=== PATIENT | female | born 1990 | race Caucasian/White ===

== ENCOUNTER 2018-02-09 08:35 | Emergency (ER) | payer SELFPAY ==
[~2018-02-09] VITALS: Ht 160 cm; Wt 83.9 kg
[~2018-02-09 08:35] MED LIST: AC325T PO; ACHD5005 PO; CEPH500C PO; CYCL10TA9 PO; FERR-47 PO; HYDR1TAB PO; IBP600T1 PO; METR500T21 PO; PREN1TAB39; TRAM50TA2 PO
[2018-02-09] MEDS ORDERED: HYDROcodone/APAP 5 MG/325 MG (LORTAB) TAB PO ONE (09:00)
[2018-02-09] MEDS ORDERED: HYDR-3812 PO (09:02)
[2018-02-09] MEDS ORDERED: AMOX500T2 PO (09:02)
--- NOTE | 2018-02-09 09:03 | ED EENT ---
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 She believes it is really originating from a wisdom tooth. She is afebrile at the moment but reports a temperature of 100 yesterday. Pain was severe through the night. On exam she has an impacted and slightly erupted wisdom tooth at position 17. She has been using Tylenol, ibuprofen, and Orajel without sufficient relief. Her pain is rated as 8/10. Patient brings a friend to interpret for her. She has not been able to see a dentist yet due to scheduling availability. Allergies and Home Medications Allergies Coded Allergies: NKANo Known Allergies (Unverified Allergy, Mild, 09/10/09) No Known Drug Allergies (Unverified , 02/01/09) Home Medications Acetaminophen 325 Mg Tab, 325 MG PO PRN PRN for PAIN Prescribed by: KEVIN BABB on 03/09/14 0945 Hydrocodone Bit/Acetaminophen 1 Tab Tab, 1-2 TAB PO Q4H PRN for pain Prescribed by: KEVIN BABB on 03/09/14 0945 Hydrocodone/Acetaminophen 1 Each Tablet, 1-2 EACH PO Q4H Prescribed by: NEIL JORGENSEN on 02/09/18 0902 Ibuprofen 600 Mg Tab, 600 MG PO Q6H Prescribed by: KEVIN BABB on 03/09/14 0945 Patient Home Medication List Home Medication List Reviewed: Yes Review of Systems Constitutional: see HPI Eyes: No Symptoms Reported Ears: No Symptoms Reported Nose: no symptoms reported Mouth: see HPI Throat: no symptoms reported Respiratory: no symptoms reported Cardiovascular: no symptoms reported Gastrointestinal: no symptoms reported Musculoskeletal: no symptoms reported Skin: no symptoms reported Neurological: No Symptoms Reported Hematologic/Lymphatic: No Symptoms Reported Past Xssezch-Zbuiym-Wgkwqw Hx Patient Social History Alcohol Use: Denies Use Recreational Drug Use: No Smoking Status: Never a Smoker Recent Foreign Travel: No Contact w/Someone Who Travel: No Immunizations Up To Date Tetanus Booster (TDap): Unknown Past Medical History Surgeries: No Respiratory: No Cardiac: No Neurological: No : No Gastrointestinal: No Musculoskeletal: No Endocrine: No Cancer: No Psychosocial: No Integumentary: No Blood Disorders: No Adverse Reaction/Blood Tranf: No Family Medical History Patient reports no known family medical history. Physical Exam Vital Signs Vital Signs - First Documented 02/09/18 08:43 Temp 97.2 Pulse 46 Resp 18 B/P (MAP) 150/70 (96) Pulse Ox 98 O2 Delivery Room Air General Appearance: WD/WN, no apparent distress Eyes: bilateral eye normal inspection, bilateral eye PERRL, bilateral eye EOMI Ears: bilateral ear auricle normal, bilateral ear canal normal, bilateral ear TM normal Nose: normal inspection Mouth/Throat: pharynx normal, other (the third molar in position 17 is partially erupted and very tender. There is localized edema without evidence of inflammation or abscess. The adjacent molars are also tender when pressed. 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 She was advised to see a dentist and/or oral surgeon as soon as possible. Prescriptions were provided. Departure Impression Primary Impression: Impacted third molar tooth Additional Impression: Pain, dental Disposition: 01 HOME, SELF-CARE Condition: Stable Departure-Patient Inst. Referrals: GIN FAITH MD (PCP/Family) Primary Care Physician Patient Instructions: Impacted Tooth (DC), Dental Pain (DC) Add. Discharge Instructions: Use ibuprofen up to 600 mg every 6 hours as needed for primary pain management. Add hydrocodone as prescribed for pain not controlled by ibuprofen. Do not drive or operate machinery while on hydrocodone as it may make you drowsy. Complete your antibiotics as prescribed. You may use topical anesthetics such as Orajel if they are helpful. Follow-up with a dentist and/or your primary care provider soon as possible. All discharge instructions reviewed with patient and/or family. Voiced understanding. Scripts Amoxicillin (Amoxicillin) 500 Mg Capsule 1000 MG PO BID, #40 CAP Prov: NEIL HUSSEIN MD 02/09/18 Hydrocodone/Acetaminophen (Hydrocodone-Acetamin 5-325 mg) 1 Each Tablet 1-2 EACH PO Q4H, #20 TAB Prov: NEIL HUSSEIN MD 02/09/18 NEIL HUSSEIN MD February 09, 2018 09:03
[2018-02-09] MEDS ORDERED: AMOX500C2 PO (09:07)
[2018-02-09 09:08] VITALS: BP 150/70
== END 2018-02-09 09:08 | disposition home or self-care (01) ==
LOC: EDUNIT# 08:35 → ER 08:39
DX: K01.1 Impacted teeth (principal)
CPT/HCPCS: 99283

== ENCOUNTER 2019-05-04 18:28 | Emergency (ER) | payer SELFPAY ==
[~2019-05-04] VITALS: Ht 160 cm; Wt 95.3 kg
[~2019-05-04 18:28] MED LIST changes: +AMOX500C2 PO; +AMOX500T2 PO; +HYDR-3812 PO; +METR-145 PO; -METR500T21 PO
[2019-05-04] MEDS ORDERED: LACTATED RINGERS 1,000 ML IV ONE (19:02)
[2019-05-04 19:05] LABS: BILIRUBIN,URINE NEGATIVE (NEGATIVE); CLARITY,URINE CLEAR; COLOR,URINE YELLOW; GLUCOSE, URINE (UA) NEGATIVE (NEGATIVE); KETONES,URINE NEGATIVE (NEGATIVE); LEUKOCYTE ESTERASE ,URINE NEGATIVE (NEGATIVE); NITRITE,URINE NEGATIVE (NEGATIVE); PH,URINE 6 (5-9); PROTEIN,URINE 1+ (NEGATIVE); UROBILINOGEN,URINE 4 MG/DL (NORMAL)
[2019-05-04 19:11] LABS: BASOPHILS % (AUTO) 0 % (0-10); EOSINOPHILS # (AUTO) 0.1 10^3/uL (0.0-0.3); EOSINOPHILS % (AUTO) 1 % (0-10); HEMATOCRIT 37 % (35-52); HEMOGLOBIN 12.1 G/DL (11.5-16.0); LYMPHOCYTES # (AUTO) 2.8 X 10^3 (1.0-4.0); LYMPHOCYTES % (AUTO) 33 % (12-44); MEAN CORPUSCULAR HEMOGLOBIN 25 PG (25-34); MEAN CORPUSCULAR HGB CONC 32 G/DL (32-36); MEAN CORPUSCULAR VOLUME 77 FL (80-99); MONOCYTES # (AUTO) 0.6 X 10^3 (0.0-1.0); MONOCYTES % (AUTO) 7 % (0-12); NEUTROPHILS % (AUTO) 59 % (42-75); PLATELET COUNT 332 10^3/uL (130-400); RED CELL DISTRIBUTION WIDTH 17.1 % (10.0-14.5); WHITE BLOOD COUNT 8.6 10^3/uL (4.3-11.0)
[2019-05-04] MEDS ORDERED: ONDANSETRON 4 MG/2 ML (SDV) Z0FRAN IVP ONE (19:15)
[2019-05-04 19:24] LABS: ALANINE AMINOTRANSFERASE 49 U/L (0-55); ALBUMIN 4.2 GM/DL (3.2-4.5); ALKALINE PHOSPHATASE 89 U/L (40-136); AMYLASE 64 U/L (25-125); BILIRUBIN,TOTAL 0.3 MG/DL (0.1-1.0); BUN/CREATININE RATIO 22; CALCIUM 9.5 MG/DL (8.5-10.1); CARBON DIOXIDE 22 MMOL/L (21-32); CHLORIDE 106 MMOL/L (98-107); CREATININE SERUM 0.76 MG/DL (0.60-1.30); GFR ESTIMATED > 60; GLUCOSE 84 MG/DL (70-105); LIPASE 55 U/L (8-78); POTASSIUM 3.5 MMOL/L (3.6-5.0); SODIUM 142 MMOL/L (135-145); TOTAL PROTEIN 8.6 GM/DL (6.4-8.2)
[2019-05-04 19:36] LABS: BACTERIA,URINE MODERATE /HPF
[2019-05-04] MEDS ORDERED: NS 100 ML (IVPB) BAG IV ONE (19:45)
[2019-05-04] MEDS ORDERED: CATHETER FLUSH 10 ML SYR IV PRN (19:45)
[2019-05-04] MEDS ORDERED: IOHEXOL 350 MG/ML 100 ML (OMNIPAQUE 350) VIAL IV ONE (19:45)
[2019-05-04] MEDS ORDERED: HOLD METFORMIN - RECEIVED CONTRAST 20 ML VIAL IV SCH (19:45)
--- NOTE | 2019-05-04 20:02 | Diagnostic Imaging Report ---
INDICATION: Right-sided pain. FINDINGS: The lungs are clear. The heart and vessels are normal. There is no effusion or pneumothorax. No free air beneath the diaphragms. The bowel gas pattern is unremarkable. No pathological fecal loading. No abnormal bowel distention. No air-fluid levels. No pneumatosis. IMPRESSION: Unremarkable acute abdominal series. Dictated by: Dictated on workstation # [id number]
--- NOTE | 2019-05-04 20:10 | ED Abdominal Pain ---
General Chief Complaint: Abdominal/GI Problems Stated Complaint: VOMITING Nursing Triage Note: PT AMBULATES TO ROOM 06 WITH CO VOMITING X5 TODAY WITH ABD PAIN 8/10. 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 NO HISTORY OF ABDOMINAL/ GI PROBLEMS AND NO PRIOR SURGERIES [place]CP[place] [facility] [place]ies and Home Medications Allergies Coded Allergies: NKANo Known Allergies (Unverified Allergy, Mild, 09/10/09) No Known Drug Allergies (Unverified , 02/01/09) Home Medications Acetaminophen 325 Mg Tab, 325 MG PO PRN PRN for PAIN Prescribed by: KEVIN BABB on 03/09/14 0945 Amoxicillin 500 Mg Capsule, 1,000 MG PO BID Prescribed by: NEIL JORGENSEN on 02/09/18 0907 Hydrocodone Bit/Acetaminophen 1 Tab Tab, 1-2 TAB PO Q4H PRN for pain Prescribed by: KEVIN BABB on 03/09/14 0945 Hydrocodone/Acetaminophen 1 Each Tablet, 1-2 EACH PO Q4H Prescribed by: NEIL JORGENSEN on 02/09/18 0902 Ibuprofen 600 Mg Tab, 600 MG PO Q6H Prescribed by: KEVIN BABB on 03/09/14 0945 Patient Home Medication List Home Medication List Reviewed: Yes Review of Systems Review of Systems Constitutional: see HPI Respiratory: No Symptoms Reported Cardiovascular: No Symptoms Reported Gastrointestinal: See HPI, Abdominal Pain, Nausea, Vomiting Genitourinary: See HPI Musculoskeletal: no symptoms reported Skin: no symptoms reported Psychiatric/Neurological: No Symptoms Reported Endocrine: No Symptoms Reported Hematologic/Lymphatic: No Symptoms Reported Past Wmzlwbm-Epbjtx-Fqlajh Hx Past Med/Social Hx: Reviewed and Corrections made Patient Social History Alcohol Use: Denies Use Recreational Drug Use: No Smoking Status: Never a Smoker 2nd Hand Smoke Exposure: No Recent Foreign Travel: No Contact w/Someone Who Travel: No Recent Infectious Disease Expo: No Recent Hopitalizations: No Physical Abuse: No Sexual Abuse: No Mistreated: No Fear: No Immunizations Up To Date Tetanus Booster (TDap): Unknown Seasonal Allergies Seasonal Allergies: No Past Medical History Surgeries: No Respiratory: No Cardiac: No Neurological: No Last Menstrual Period: Jan 08, 2019 Female Reproductive Disorders: Denies Genitourinary: No Gastrointestinal: No Musculoskeletal: No Endocrine: No HEENT: No Loss of Vision: Denies Hearing Impairment: Denies Cancer: No Psychosocial: No Integumentary: No Blood Disorders: No Adverse Reaction/Blood Tranf: No Family Medical History Patient reports no known family medical history. Physical Exam Vital Signs Vital Signs - First Documented 05/04/19 18:37 Temp 97.2 Pulse 16 Resp 16 B/P (MAP) 128/83 (98) Pulse Ox 99 O2 Delivery Room Air Capillary Refill : Less Than 3 Seconds Height/Weight/BMI Height: 5'3.00" Weight: 210lbs. oz. [id number]; 34.33 BMI Method:Stated General Appearance: WD/WN, no apparent distress, obese, other (WALKS UPRIGHT AND MOVES WITHOUT DIFFICULTY, SMILING. 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, no motor/sensory deficits, alert, normal mood/affect, oriented x 3 Skin: normal color, warm/dry Progress/Results/Core Measures Results/Orders Lab Results Laboratory Tests Test 05/04/19 18:47 05/04/19 18:59 Range/Units White Blood Count 8.6 4.3-11.0 10^3/uL Red Blood Count 4.83 4.35-5.85 10^6/uL Hemoglobin 12.1 11.5-16.0 G/DL Hematocrit 37 35-52 % Mean Corpuscular Volume 77 L 80-99 FL Mean Corpuscular Hemoglobin 25 25-34 PG Mean Corpuscular Hemoglobin Concent 32 32-36 G/DL Red Cell Distribution Width 17.1 H 10.0-14.5 % Platelet Count 332 130-400 10^3/uL Mean Platelet Volume 11.0 H 7.4-10.4 FL Neutrophils (%) (Auto) 59 42-75 % Lymphocytes (%) (Auto) 33 12-44 % Monocytes (%) (Auto) 7 0-12 % Eosinophils (%) (Auto) 1 0-10 % Basophils (%) (Auto) 0 0-10 % Neutrophils # (Auto) 5.0 1.8-7.8 X 10^3 Lymphocytes # (Auto) 2.8 1.0-4.0 X 10^3 Monocytes # (Auto) 0.6 0.0-1.0 X 10^3 Eosinophils # (Auto) 0.1 0.0-0.3 10^3/uL Basophils # (Auto) 0.0 0.0-0.1 10^3/uL Sodium Level 142 135-145 MMOL/L Potassium Level 3.5 L 3.6-5.0 MMOL/L Chloride Level 106 98-107 MMOL/L Carbon Dioxide Level 22 21-32 MMOL/L Anion Gap 14 5-14 MMOL/L Blood Urea Nitrogen 17 7-18 MG/DL Creatinine 0.76 0.60-1.30 MG/DL Estimat Glomerular Filtration Rate > 60 BUN/Creatinine Ratio 22 Glucose Level 84 70-105 MG/DL Calcium Level 9.5 8.5-10.1 MG/DL Corrected Calcium 9.3 8.5-10.1 MG/DL Total Bilirubin 0.3 0.1-1.0 MG/DL Aspartate Amino Transf (AST/SGOT) 37 H 5-34 U/L Alanine Aminotransferase (ALT/SGPT) 49 0-55 U/L Alkaline Phosphatase 89 40-136 U/L Total Protein 8.6 H 6.4-8.2 GM/DL Albumin 4.2 3.2-4.5 GM/DL Amylase Level 64 25-125 U/L Lipase 55 8-78 U/L Serum Test, Qualitative NEGATIVE NEGATIVE Urine Color YELLOW Urine Clarity CLEAR Urine pH 6 5-9 Urine Specific [place] 1.025 H 1.016-1.022 Urine Protein 1+ H NEGATIVE Urine Glucose (UA) NEGATIVE NEGATIVE Urine Ketones NEGATIVE NEGATIVE Urine Nitrite NEGATIVE NEGATIVE Urine Bilirubin NEGATIVE NEGATIVE Urine Urobilinogen 4 H NORMAL MG/DL Urine Leukocyte Esterase NEGATIVE NEGATIVE Urine RBC (Auto) NEGATIVE NEGATIVE Urine RBC NONE /HPF Urine WBC 2-5 /HPF Urine Squamous Epithelial Cells 5-10 /HPF Urine Crystals NONE /LPF Urine Bacteria MODERATE H /HPF Urine Casts NONE /LPF Urine Mucus LARGE H /LPF Urine Culture Indicated NO My Orders Orders - LESTER RICE DO Urine Bedside (05/04/19 18:37) Ua Culture If Indicated (05/04/19 18:37) Ed Iv/Invasive Line Start (05/04/19 19:02) Amylase (05/04/19 19:02) Cbc With Automated Diff (05/04/19 19:02) Comprehensive Metabolic Panel (05/04/19 19:02) Hcg,Qualitative Serum (05/04/19 19:02) Lipase (05/04/19 19:02) Ed Iv/Invasive Line Start (05/04/19 19:02) Lactated Ringers (Lr 1000 Ml Iv Solution (05/04/19 19:02) Ondansetron Injection (Zofran Injectio (05/04/19 19:15) Ct Abd/Pelv W (Appendicitis) (05/04/19 19:40) Acute Abd Series (05/04/19 19:40) Iohexol Injection (Omnipaque 350 Mg/Ml 1 (05/04/19 19:45) Received Contrast (Hold Metformin- Contr (05/04/19 19:45) Sodium Chloride Flush (Catheter Flush Sy (05/04/19 19:45) Ns (Ivpb) (Sodium Chloride 0.9% Ivpb Bag (05/04/19 19:45) Medications Given in ED Current Medications Medications Dose Ordered Sig/Jonny Route Start Time Stop Time Status Last Admin Dose Admin Iohexol 100 ml ONCE ONCE IV 05/04/19 19:45 05/04/19 19:46 DC 05/04/19 20:09 100 ML Lactated Ringer's 1,000 ml @ 0 mls/hr Q0M ONCE IV 05/04/19 19:02 05/04/19 19:04 DC 05/04/19 19:16 0 MLS/HR Ondansetron HCl 4 mg ONCE ONCE IVP 05/04/19 19:15 05/04/19 19:16 DC 05/04/19 19:16 4 MG Sodium Chloride 10 ml NEEDED PRN IV 05/04/19 19:45 05/04/19 20:09 10 ML Sodium Chloride 100 ml ONCE ONCE IV 05/04/19 19:45 05/04/19 19:46 DC 05/04/19 20:09 80 ML Vital Signs/I&O 05/04/19 18:37 Temp 97.2 Pulse 16 Resp 16 B/P (MAP) 128/83 (98) Pulse Ox 99 O2 Delivery Room Air Blood Pressure Mean: 98 Progress Progress Note : Progress Note FEELS MUCH BETTER AT DISMISSAL NO VOMITING, AND NAUSEA AND PAIN RELIEVED WITH MEDICATIONS Diagnostic Imaging Comments ABDOMEN XRAYS--NO ACUTE PROCESS CT ABDOMEN/PELVIS--NO ACUTE PROCESS PER RADIOLOGIST REPORTS AT 2021 Reviewed: Reviewed by Me Departure Impression Primary Impression: Gastroenteritis Additional Impression: Amenorrhea Disposition: HOME, SELF-CARE Condition: Improved Departure-Patient Inst. Referrals: NO,LOCAL PHYSICIAN (PCP/Family) Primary Care Physician Patient Instructions: Absent or Irregular Periods, [id number] Add. Discharge Instructions: LOTS OF CLEAR LIQUIDS--WATER, BROTH, JELLO, GATORADE TOMORROW IF YOU ARE BETTER, ADD BRATS DIET TO CLEAR LIQUIDS--BANANAS, RICE, A PPLESAUCE, TOAST, SALTINES FOLLOW UP WITH OF JUANY IN 2-3 DAYS IF NO BETTER, RETURN TO ER IF WORSE All discharge instructions reviewed with patient and/or family. Voiced understanding. Scripts Hyoscyamine Sulfate (Levsin-Sl) 0.125 Mg Tab.subl 1-2 TAB SL Q4H for Abdominal Pain, #10 TAB Prov: LESTER RICE DO 05/04/19 Ondansetron (Ondansetron Odt) 4 Mg Tab.rapdis 4 MG PO Q4H for Nausea/Vomiting, #10 TAB Prov: LESTER RICE DO 05/04/19 LESTER RICE DO May 04, 2019 20:10
--- NOTE | 2019-05-04 20:17 | Diagnostic Imaging Report ---
PROCEDURE: CT abdomen and pelvis with contrast, rule out appendicitis. TECHNIQUE: Multiple contiguous axial images were obtained through the abdomen and pelvis after the administration of intravenous contrast. INDICATION: Right-sided pain. FINDINGS: The air-containing appendix is directed medially and superiorly and appears normal. There is no periappendiceal edema. There is no hydronephrosis. Tiny right renal cortical cyst noted. There is fatty infiltration of the liver with sparing adjacent to the gallbladder fundus. No identifiable gallstone or biliary dilatation. There are no CT findings of pancreatitis. The spleen and adrenals are negative. There is no bowel obstruction. No acute adnexal lesion is identified. No radiodense urinary tract stones at this zpii-[id number]-rocyxsrf exam are found. No focal inflammatory change. No pneumatosis. No free gas. The osseous structures appear unremarkable. IMPRESSION: Normal appendix with unobstructed nonacute urinary tracts. Fatty liver with no biliary abnormality or evidence for pancreatitis. No obstructive features, inflammatory process, or acute findings at today's study are seen. Dictated by: Dictated on workstation # [id number]
[2019-05-04] MEDS ORDERED: ONDA4TAB11 PO (20:27)
[2019-05-04] MEDS ORDERED: HYOS0.1283 SL (20:27)
[2019-05-04] MEDS ORDERED: HYOSCYAMINE 0.125 MG (LEVSIN) TAB PO ONE (20:30)
[2019-05-04] MEDS ORDERED: KETOROLAC 30 MG/ML VIAL IVP ONE (20:30)
[2019-05-04] MEDS ORDERED: KETOROLAC 30 MG/ML VIAL ONE (20:39)
[2019-05-04] MEDS ORDERED: HYOSCYAMINE 0.125 MG (LEVSIN) TAB ONE (20:39)
[2019-05-04 20:54] VITALS: BP 123/82
== END 2019-05-04 20:56 | disposition home or self-care (01) ==
LOC: EDUNIT# 18:28 → ER 18:30
DX: K52.9 Noninfective gastroenteritis and colitis, unspecified (principal); N91.2 Amenorrhea, unspecified
CPT/HCPCS: 36415; 74022; 74177; 80053; 81000; 82150; 83690; 84703; 85025; 96361; 96374; 96375

== ENCOUNTER 2020-09-12 16:20 | Emergency (ER) | payer SELFPAY ==
[~2020-09-12] VITALS: Ht 165 cm; Wt 95.0 kg
[~2020-09-12 16:20] MED LIST changes: -HYDR-3812 PO; +HYOS0.1283 SL; +ONDA4TAB11 PO; -TRAM50TA2 PO; +TRM50T PO
[2020-09-12] MEDS ORDERED: KETOROLAC 30 MG/ML VIAL ONE (16:37)
[2020-09-12] MEDS ORDERED: KETOROLAC 30 MG/ML VIAL IVP ONE (16:45)
--- NOTE | 2020-09-12 16:47 | ED Back Pain ---
General Chief Complaint: Back Problems Stated Complaint: LOWER BACK PAIN Source of Information: Patient Exam Limitations: No Limitations History of Present Illness Date Seen by Provider: Sep 12, 2020 Time Seen by Provider: 16:45 Initial Comments To ER with left flank/thoracic pain since yesterday. No cough but she has been slightly short of breath with this. No fevers but she has had chills. She had Covid back in June. No known injury. Taking a deep breath makes the pain much worse. Location: T-Spine Timing/Duration: 12-24 Hours Severity: Moderate Pain/Injury Location: Back Associated Symptoms: denies symptoms Allergies and Home Medications Allergies Coded Allergies: NKANo Known Allergies (Unverified Allergy, Mild, 09/10/09) No Known Drug Allergies (Unverified , 02/01/09) Home Medications Acetaminophen 325 Mg Tab, 325 MG PO PRN PRN for PAIN Prescribed by: KEVIN BABB on 03/09/14 0945 Amoxicillin 500 Mg Capsule, 1,000 MG PO BID Prescribed by: NEIL JORGENSEN on 02/09/18 0907 Hydrocodone Bit/Acetaminophen 1 Tab Tab, 1-2 TAB PO Q4H PRN for pain Prescribed by: KEVIN BABB on 03/09/14 0945 Hydrocodone Bit/Acetaminophen 1 Each Tablet, 1-2 EACH PO Q4H Prescribed by: NEIL JORGENSEN on 02/09/18 0902 Hyoscyamine Sulfate 0.125 Mg Tab.subl, 1-2 TAB SL Q4H Prescribed by: LESTER RICE on 05/04/192026 Ibuprofen 600 Mg Tab, 600 MG PO Q6H Prescribed by: KEVIN BABB on 03/09/14 0945 Methocarbamol 750 Mg Tablet, 750 MG PO Q4H PRN for PAIN-MODERATE (5-7) Prescribed by: CHULA SEVILLA on 09/12/20 183 Ondansetron 4 Mg Tab.rapdis, 4 MG PO Q4H Prescribed by: LESTER RICE on 05/04/192026 Patient Home Medication List Home Medication List Reviewed: Yes Review of Systems Constitutional: see HPI EENTM: see HPI Respiratory: no symptoms reported Cardiovascular: no symptoms reported Genitourinary: no symptoms reported Musculoskeletal: see HPI Skin: no symptoms reported Psychiatric/Neurological: No Symptoms Reported Past Bxqcwbi-Igykec-Sropyt Hx Patient Social History 2nd Hand Smoke Exposure: No Recent Foreign Travel: No Contact w/Someone Who Travel: No Recent Hopitalizations: No Immunizations Up To Date Tetanus Booster (TDap): Unknown Seasonal Allergies Seasonal Allergies: No Past Medical History Surgeries: No Respiratory: No Cardiac: No Neurological: No Female Reproductive Disorders: Denies Genitourinary: No Gastrointestinal: No Musculoskeletal: No Endocrine: No HEENT: No Loss of Vision: Denies Hearing Impairment: Denies Cancer: No Psychosocial: No Integumentary: No Blood Disorders: No Adverse Reaction/Blood Tranf: No Family Medical History Patient reports no known family medical history. Physical Exam Vital Signs Vital Signs - First Documented 09/12/20 17:10 Temp 36.3 Pulse 80 Resp 20 B/P (MAP) 143/97 (112) O2 Delivery Room Air Capillary Refill : Height, Weight, BMI Height: 5'3.00" Weight: 210lbs. oz. 95.379855da; 34.33 BMI Method:Stated General Appearance: No Apparent Distress, WD/WN Neck: Full Range of Motion, Normal Inspection Respiratory: No Accessory Muscle Use, No Respiratory Distress, Other (Left posterior mid thoracic tenderness to palpation) Gastrointestinal: Normal Bowel Sounds, Non Tender, Soft Extremity: Normal Capillary Refill, Normal Inspection Neurologic/Psychiatric: Alert, Oriented x3 Skin: Normal Color, Warm/Dry Progress/Results/Core Measures Results/Orders Lab Results Laboratory Tests Test 09/12/20 17:02 09/12/20 18:36 Range/Units White Blood Count 9.6 4.3-11.0 10^3/uL Red Blood Count 4.66 3.80-5.11 10^6/uL Hemoglobin 12.1 11.5-16.0 g/dL Hematocrit 38 35-52 % Mean Corpuscular Volume 82 80-99 fL Mean Corpuscular Hemoglobin 26 25-34 pg Mean Corpuscular Hemoglobin Concent 32 32-36 g/dL Red Cell Distribution Width 15.2 H 10.0-14.5 % Platelet Count 297 130-400 10^3/uL Mean Platelet Volume 9.8 9.0-12.2 fL Immature Granulocyte % (Auto) 0 % Neutrophils (%) (Auto) 77 H 42-75 % Lymphocytes (%) (Auto) 18 12-44 % Monocytes (%) (Auto) 5 0-12 % Eosinophils (%) (Auto) 0 0-10 % Basophils (%) (Auto) 0 0-10 % Neutrophils # (Auto) 7.4 1.8-7.8 10^3/uL Lymphocytes # (Auto) 1.7 1.0-4.0 10^3/uL Monocytes # (Auto) 0.5 0.0-1.0 10^3/uL Eosinophils # (Auto) 0.0 0.0-0.3 10^3/uL Basophils # (Auto) 0.0 0.0-0.1 10^3/uL Immature Granulocyte # (Auto) 0.0 0.0-0.1 10^3/uL D-Dimer < 0.27 0.00-0.49 UG/ML Sodium Level 137 135-145 MMOL/L Potassium Level 3.3 L 3.6-5.0 MMOL/L Chloride Level 105 98-107 MMOL/L Carbon Dioxide Level 22 21-32 MMOL/L Anion Gap 10 5-14 MMOL/L Blood Urea Nitrogen 9 7-18 MG/DL Creatinine 0.62 0.60-1.30 MG/DL Estimat Glomerular Filtration Rate > 60 BUN/Creatinine Ratio 15 Glucose Level 83 70-105 MG/DL Calcium Level 8.5 8.5-10.1 MG/DL Corrected Calcium 8.5 8.5-10.1 MG/DL Total Bilirubin 0.4 0.1-1.0 MG/DL Aspartate Amino Transf (AST/SGOT) 42 H 5-34 U/L Alanine Aminotransferase (ALT/SGPT) 57 H 0-55 U/L Alkaline Phosphatase 72 40-136 U/L C-Reactive Protein High Sensitivity 1.59 H 0.00-0.50 MG/DL Total Protein 7.9 6.4-8.2 GM/DL Albumin 4.0 3.2-4.5 GM/DL Serum Test, Qualitative NEGATIVE NEGATIVE Urine Color YELLOW Urine Clarity CLEAR Urine pH 6.5 5-9 Urine Specific [place] 1.010 L 1.016-1.022 Urine Protein NEGATIVE NEGATIVE Urine Glucose (UA) NEGATIVE NEGATIVE Urine Ketones 1+ H NEGATIVE Urine Nitrite NEGATIVE NEGATIVE Urine Bilirubin NEGATIVE NEGATIVE Urine Urobilinogen 0.2 < = 1.0 MG/DL Urine Leukocyte Esterase NEGATIVE NEGATIVE Urine RBC (Auto) NEGATIVE NEGATIVE Urine RBC NONE /HPF Urine WBC RARE /HPF Urine Squamous Epithelial Cells 5-10 /HPF Urine Crystals NONE /LPF Urine Bacteria TRACE /HPF Urine Casts NONE /LPF Urine Mucus NEGATIVE /LPF Urine Culture Indicated NO My Orders Orders - CHULA SEVILLA APRN Ua Culture If Indicated (09/12/20 16:23) Cbc With Automated Diff (09/12/20 16:38) Hs C Reactive Protein (09/12/20 16:38) Comprehensive Metabolic Panel (09/12/20 16:38) Ed Iv/Invasive Line Start (09/12/20 16:38) Ketorolac Injection (Toradol Injection) (09/12/20 16:45) Fibrin Degradation Products (09/12/20 16:38) Ketorolac Injection (Toradol Injection) (09/12/20 16:37) Ct Angio Chst/Abd/Pelv W (09/12/20 16:48) Hcg,Qualitative Serum (09/12/20 17:31) Fentanyl Injection (Sublimaze Injection (09/12/20 18:00) Iohexol Injection (Omnipaque 350 Mg/Ml 1 (09/12/20 18:00) Received Contrast (Hold Metformin- Contr (09/12/20 18:00) Ns (Ivpb) (Sodium Chloride 0.9% Ivpb Bag (09/12/20 18:00) Medications Given in ED Current Medications Medications Dose Ordered Sig/Jonny Route Start Time Stop Time Status Last Admin Dose Admin Fentanyl Citrate 50 mcg ONCE ONCE IVP 09/12/20 18:00 09/12/20 18:02 DC 09/12/20 17:54 50 MCG Iohexol 85 ml ONCE ONCE IV 09/12/20 18:00 09/12/20 18:02 DC 09/12/20 18:02 85 ML Ketorolac Tromethamine 15 mg ONCE ONCE IVP 09/12/20 16:45 09/12/20 16:46 DC 09/12/20 17:07 15 MG Sodium Chloride 100 ml ONCE ONCE IV 09/12/20 18:00 09/12/20 18:02 DC 09/12/20 18:02 80 ML Vital Signs/I&O 09/12/20 17:10 Temp 36.3 Pulse 80 Resp 20 B/P (MAP) 143/97 (112) O2 Delivery Room Air Departure Impression Primary Impression: Musculoskeletal pain Disposition: 01 HOME, SELF-CARE Condition: Stable Departure-Patient Inst. Decision time for Depature: 18:29 Referrals: NO,LOCAL PHYSICIAN (PCP/Family) Primary Care Physician Patient Instructions: Muscle Strain Add. Discharge Instructions: 1. Return to ER for any concerns 2. Follow-up with your doctor next week 3. Tylenol can be used in addition to the muscle relaxer that was prescribed and you can also use ibuprofen in addition to the muscle relaxer. Return to ER for any worsening. emergency department focuses on treating and ruling out life-threatening diseases. Whenever possible, a diagnosis is given. However, most patients are given an impression based on their history, physical exam, and workup during your brief time in the ER. Information about probable diagnosis and other educational material has been provided. Please take the time to read and understand this information. It is very important that you follow up with a physician as discussed during the visit today. Failure to adhere to your follow-up instructions may lead to severe disability, injury, or so please make sure to keep your appointments or obtain one as requested. All discharge instructions reviewed with patient and/or family. Voiced understanding. Scripts Methocarbamol (Robaxin-750) 750 Mg Tablet 750 MG PO Q4H PRN for PAIN-MODERATE (5-7), #20 TAB Prov: CHULA SEVILLA APRN 09/12/20 Images Torso/Trunk 1 - Tenderness CHULA SEVILLA APRN Sep 12, 2020 16:47
[2020-09-12 17:10] LABS: BASOPHILS % (AUTO) 0 % (0-10); EOSINOPHILS % (AUTO) 0 % (0-10); HEMATOCRIT 38 % (35-52); HEMOGLOBIN 12.1 g/dL (11.5-16.0); LYMPHOCYTES # (AUTO) 1.7 10^3/uL (1.0-4.0); LYMPHOCYTES % (AUTO) 18 % (12-44); MEAN CORPUSCULAR HEMOGLOBIN 26 pg (25-34); MEAN CORPUSCULAR HGB CONC 32 g/dL (32-36); MEAN CORPUSCULAR VOLUME 82 fL (80-99); MEAN PLATELET VOLUME 9.8 fL (9.0-12.2); MONOCYTES # (AUTO) 0.5 10^3/uL (0.0-1.0); MONOCYTES % (AUTO) 5 % (0-12); NEUTROPHILS # (AUTO) 7.4 10^3/uL (1.8-7.8); NEUTROPHILS % (AUTO) 77 % (42-75); PLATELET COUNT 297 10^3/uL (130-400); WHITE BLOOD COUNT 9.6 10^3/uL (4.3-11.0)
[2020-09-12 17:23] LABS: CHLORIDE 105 MMOL/L (98-107); POTASSIUM 3.3 MMOL/L (3.6-5.0); SODIUM 137 MMOL/L (135-145)
[2020-09-12 17:24] LABS: CALCIUM 8.5 MG/DL (8.5-10.1)
[2020-09-12 17:26] LABS: GLUCOSE 83 MG/DL (70-105); TOTAL PROTEIN 7.9 GM/DL (6.4-8.2)
[2020-09-12 17:27] LABS: BILIRUBIN,TOTAL 0.4 MG/DL (0.1-1.0); CARBON DIOXIDE 22 MMOL/L (21-32)
[2020-09-12 17:29] LABS: ALKALINE PHOSPHATASE 72 U/L (40-136); CREATININE SERUM 0.62 MG/DL (0.60-1.30); GFR ESTIMATED > 60
[2020-09-12 17:30] LABS: BUN/CREATININE RATIO 15
[2020-09-12 17:32] LABS: ALANINE AMINOTRANSFERASE 57 U/L (0-55)
[2020-09-12] MEDS ORDERED: HOLD METFORMIN - RECEIVED CONTRAST 20 ML VIAL IV SCH (18:00)
[2020-09-12] MEDS ORDERED: NS 100 ML (IVPB) BAG IV ONE (18:00)
[2020-09-12] MEDS ORDERED: fentaNYL INJECTION 100 MCG/2 ML AMP IVP ONE (18:00)
[2020-09-12] MEDS ORDERED: IOHEXOL 350 MG/ML 100 ML (OMNIPAQUE 350) VIAL IV ONE (18:00)
--- NOTE | 2020-09-12 18:26 | Diagnostic Imaging Report ---
PROCEDURE: CT angiography of the chest with contrast and CT abdomen and pelvis with contrast. TECHNIQUE: Multiple contiguous axial images were obtained through the chest, abdomen and pelvis after administration of intravenous contrast. 3D MIP reconstructed CT angiography acquisitions of the aorta were then performed. Auto Exposure Controls were utilized during the CT exam to meet ALARA standards for radiation dose reduction. INDICATION: Left lower chest pain. Upper flank pain. COMPARISON: 05/04/2019 FINDINGS: CTA CHEST: The heart is normal in size. The aorta is normal in caliber with no evidence of dissection. No central pulmonary emboli are seen. There is no mediastinal adenopathy. There is no pleural effusion or pneumothorax. There is minimal dependent atelectasis in the right lung. No central endobronchial lesions are seen. No acute osseous abnormality is seen. CT ABDOMEN/PELVIS: This is a postcontrast exam but there does appear to be diffuse fatty infiltration throughout the liver. No focal hepatic lesions are seen. The spleen appears normal. A splenule is noted. The pancreas is normal. The adrenal glands appear normal. There is no hydronephrosis in the kidneys bilaterally. 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 Contrast enhancement appears normal. The aorta is normal in caliber. There is no stenosis, obstruction, or aneurysm. There is no dissection. The branch vessels appear normal. The bowel loops are nondistended without obstruction. The appendix is normal. There is moderate stool in the proximal colon. Minimal fluid is seen in the pelvis, which is likely physiologic. No free fluid or free air is seen. No acute osseous abnormality is seen. IMPRESSION: 1. The aorta appears normal. 2. No acute abnormality is seen in the chest, abdomen or pelvis. 3. Duplicated left renal collecting system. There is no hydronephrosis and contrast enhancement is normal. Minimal fluid in the pelvis, most likely physiologic. Dictated by: Dictated on workstation # [id number]
[2020-09-12] MEDS ORDERED: METH-313 PO (18:30)
[2020-09-12 18:42] LABS: BILIRUBIN,URINE NEGATIVE (NEGATIVE); CLARITY,URINE CLEAR; COLOR,URINE YELLOW; GLUCOSE, URINE (UA) NEGATIVE (NEGATIVE); KETONES,URINE 1+ (NEGATIVE); LEUKOCYTE ESTERASE ,URINE NEGATIVE (NEGATIVE); NITRITE,URINE NEGATIVE (NEGATIVE); PH,URINE 6.5 (5-9); PROTEIN,URINE NEGATIVE (NEGATIVE)
[2020-09-12 18:49] LABS: BACTERIA,URINE TRACE /HPF; WBC,URINE RARE /HPF
[2020-09-12 19:07] VITALS: BP 118/64
== END 2020-09-12 19:07 | disposition home or self-care (01) ==
LOC: EDUNIT# 16:20 → ER 16:21
DX: M54.6 Pain in thoracic spine (principal)
CPT/HCPCS: 36415; 71275; 74174; 80053; 81000; 84703; 85025; 85379; 86141

== ENCOUNTER 2022-03-26 18:03 | Emergency (ER) | payer SELFPAY ==
[~2022-03-26 18:03] MED LIST changes: +METH-313 PO
[2022-03-26 18:45] LABS: BILIRUBIN,URINE NEGATIVE (NEGATIVE); CLARITY,URINE CLEAR; COLOR,URINE YELLOW; GLUCOSE, URINE (UA) NEGATIVE (NEGATIVE); KETONES,URINE NEGATIVE (NEGATIVE); LEUKOCYTE ESTERASE ,URINE NEGATIVE (NEGATIVE); NITRITE,URINE NEGATIVE (NEGATIVE); PROTEIN,URINE NEGATIVE (NEGATIVE)
[2022-03-26 19:05] LABS: BACTERIA,URINE MODERATE /HPF; HYALINE CASTS, URINE 0-2 /LPF
[2022-03-26] MEDS ORDERED: KETOROLAC 30 MG/ML VIAL IVP ONE (19:15)
[2022-03-26] MEDS ORDERED: NS IV 500 ML 500 ML IV ONE (19:15)
--- NOTE | 2022-03-26 19:18 | ED Abdominal Pain ---
General Chief Complaint: Abdominal/GI Problems Stated Complaint: RIGHT SIDE PAIN Nursing Triage Note: PT AMB TO RM 8 WITH COMPLAINT OF ABD PAIN AND NO PERIOD SINCE OCTOBER. PT STATES SHE HAS TAKEN 3 HOME TEST AND BLOOD TEST AT [facility]. STATES SINCE OCTOBER, SHE HAS HAD A 20LB WEIGHT GAIN. Source of Information: Patient Exam Limitations: Language Barrier (Significant other speaks Kitt[place]) History of Present Illness Date Seen by Provider: Mar 26, 2022 Time Seen by Provider: 18:58 Initial Comments Patient to the ER by private conveyance with her significant other and chief complaint she has not had a period in 6 months. She is had 3 negative home test and a negative blood test at [facility]. She has not followed up with gynecology. She is now for the past couple days having some progressively worsening left flank down into her bilateral groin pain. She has not had any diarrhea however she had a normal bowel movement formed this morning. She is had no dysuria or discharge. No fevers chills. She has been using Tylenol for her pain. No history of kidney stones. No hematuria. She has had 2 C-sections. She is a G2, P2. She is not on control. Significant other noticed she had a 20 pound weight gain in the past 6 months. No other significant familial history. No other significant medical history. Allergies and Home Medications Allergies Coded Allergies: NKANo Known Allergies (Unverified Allergy, Mild, 09/10/09) No Known Drug Allergies (Unverified , 02/01/09) Patient Home Medication List Home Medication List Reviewed: Yes Acetaminophen (Tylenol Tablet) 325 Mg Tab, 325 MG PO PRN PRN for PAIN Prescribed by: KEVIN BABB on 03/09/14 0945 Amoxicillin (Amoxicillin) 500 Mg Capsule, 1,000 MG PO BID Prescribed by: NEIL JORGENSEN on 02/09/18 0907 Hydrocodone Bit/Acetaminophen (Lortab 5 Mg Tablet) 1 Tab Tab, 1-2 TAB PO Q4H PRN for pain Prescribed by: KEVIN BABB on 03/09/14 0945 Hydrocodone Bit/Acetaminophen (Lortab 5 Mg Tablet) 1 Each Tablet, 1-2 EACH PO Q4H Prescribed by: NEIL JORGENSEN on 02/09/18 09 Hyoscyamine Sulfate (Levsin-Sl) 0.125 Mg Tab.subl, 1-2 TAB SL Q4H Prescribed by: LESTER RICE on 05/04/192026 Ibuprofen (Motrin Tablet) 600 Mg Tab, 600 MG PO Q6H Prescribed by: KEVIN BABB on 03/09/14 0945 Methocarbamol (Robaxin-750) 750 Mg Tablet, 750 MG PO Q4H PRN for PAIN-MODERATE (5-7) Prescribed by: CHULA SEVILLA on 09/12/20 183 Ondansetron (Ondansetron Odt) 4 Mg Tab.rapdis, 4 MG PO Q4H Prescribed by: LESTER RICE on 05/04/192026 Review of Systems Review of Systems Constitutional: No chills, No diaphoresis EENTM: No Blurred Vision, No Double Vision Respiratory: Denies Cough, Denies Shortness of Air Cardiovascular: Denies Chest Pain, Denies Lightheadedness Gastrointestinal: See HPI, Abdominal Pain; Denies Constipated, Denies Diarrhea; Nausea; Denies Vomiting Genitourinary: Denies Burning, Denies Discharge Musculoskeletal: No back pain, No joint pain All Other Systems Reviewed Negative Unless Noted: Yes Past Ioqicsa-Ntgwfg-Nphbcd Hx Patient Social History Tobacco Use?: No Use of E-Cig and/or Vaping dev: No Substance use?: No Alcohol Use?: No Pt feels they are or have been: No Immunizations Up To Date Tetanus Booster (TDap): Unknown Seasonal Allergies Seasonal Allergies: No Past Medical History Surgeries: No Respiratory: No Cardiac: No Neurological: No Female Reproductive Disorders: Denies Genitourinary: No Gastrointestinal: No Musculoskeletal: No Endocrine: No HEENT: No Loss of Vision: Denies Hearing Impairment: Denies Cancer: No Psychosocial: No Integumentary: No Blood Disorders: No Adverse Reaction/Blood Tranf: No Family Medical History Patient reports no known family medical history. Physical Exam Vital Signs Vital Signs - First Documented 03/26/22 18:19 Temp 36.0 Pulse 80 Resp 16 B/P (MAP) 135/80 (98) Pulse Ox 94 O2 Delivery Room Air Capillary Refill : Less Than 3 Seconds Height/Weight/BMI Height: 5'3.00" Weight: 210lbs. oz. 95.957073pn; 34.00 BMI Method:Stated General Appearance: WD/WN, mild distress HEENT: PERRL/EOMI, pharynx normal Neck: full range of motion, supple, normal inspection Respiratory: lungs clear, normal breath sounds, no respiratory distress, no accessory muscle use Cardiovascular: normal peripheral pulses, regular rate, rhythm Peripheral Pulses: 2+ Radial Pulses (R), 2+ Radial Pulses (L) Gastrointestinal: normal bowel sounds, soft, guarding (Left lower quadrant and right lower quadrant abdomen), tenderness (Left lower quadrant especially. No rebound tenderness. No Rovsing sign. No psoas sign. Negative for Colon sign. Tenderness around the [place] point less so than left lower quadrant abdomen) Back: normal inspection; No CVA tenderness (R); CVA tenderness (L) Neurologic/Psychiatric: alert, normal mood/affect, oriented x 3 Skin: normal color, warm/dry Progress/Results/Core Measures Results/Orders Lab Results Laboratory Tests Test 03/26/22 18:38 03/26/22 19:36 Range/Units Urine Color YELLOW Urine Clarity CLEAR Urine pH 6.0 5-9 Urine Specific [place] >=1.030 1.016-1.022 Urine Protein NEGATIVE NEGATIVE Urine Glucose (UA) NEGATIVE NEGATIVE Urine Ketones NEGATIVE NEGATIVE Urine Nitrite NEGATIVE NEGATIVE Urine Bilirubin NEGATIVE NEGATIVE Urine Urobilinogen 0.2 < = 1.0 MG/DL Urine Leukocyte Esterase NEGATIVE NEGATIVE Urine RBC (Auto) TRACE-I H NEGATIVE Urine RBC 5-10 H /HPF Urine WBC 5-10 H /HPF Urine Squamous Epithelial Cells 5-10 /HPF Urine Crystals NONE /LPF Urine Bacteria MODERATE H /HPF Urine Casts PRESENT /LPF Urine Hyaline Casts 0-2 H /LPF Urine Mucus LARGE H /LPF Urine Culture Indicated YES White Blood Count 9.8 4.3-11.0 10^3/uL Red Blood Count 4.88 3.80-5.11 10^6/uL Hemoglobin 12.2 11.5-16.0 g/dL Hematocrit 39 35-52 % Mean Corpuscular Volume 79 L 80-99 fL Mean Corpuscular Hemoglobin 25 25-34 pg Mean Corpuscular Hemoglobin Concent 32 32-36 g/dL Red Cell Distribution Width 16.9 H 10.0-14.5 % Platelet Count 311 130-400 10^3/uL Mean Platelet Volume 10.3 9.0-12.2 fL Immature Granulocyte % (Auto) 0 % Neutrophils (%) (Auto) 66 42-75 % Lymphocytes (%) (Auto) 27 12-44 % Monocytes (%) (Auto) 6 0-12 % Eosinophils (%) (Auto) 1 0-10 % Basophils (%) (Auto) 0 0-10 % Neutrophils # (Auto) 6.5 1.8-7.8 10^3/uL Lymphocytes # (Auto) 2.7 1.0-4.0 10^3/uL Monocytes # (Auto) 0.6 0.0-1.0 10^3/uL Eosinophils # (Auto) 0.1 0.0-0.3 10^3/uL Basophils # (Auto) 0.0 0.0-0.1 10^3/uL Immature Granulocyte # (Auto) 0.0 0.0-0.1 10^3/uL Sodium Level 141 135-145 MMOL/L Potassium Level 3.7 3.6-5.0 MMOL/L Chloride Level 108 H 98-107 MMOL/L Carbon Dioxide Level 22 21-32 MMOL/L Anion Gap 11 5-14 MMOL/L Blood Urea Nitrogen 15 7-18 MG/DL Creatinine 0.64 0.60-1.30 MG/DL Estimat Glomerular Filtration Rate 120 BUN/Creatinine Ratio 23 Glucose Level 85 70-105 MG/DL Calcium Level 9.2 8.5-10.1 MG/DL Corrected Calcium 9.2 8.5-10.1 MG/DL Total Bilirubin 0.3 0.1-1.0 MG/DL Aspartate Amino Transf (AST/SGOT) 45 H 5-34 U/L Alanine Aminotransferase (ALT/SGPT) 61 H 0-55 U/L Alkaline Phosphatase 83 40-136 U/L C-Reactive Protein High Sensitivity 0.85 H 0.00-0.50 MG/DL Total Protein 8.4 H 6.4-8.2 GM/DL Albumin 4.0 3.2-4.5 GM/DL Serum Test, Qualitative NEGATIVE NEGATIVE My Orders Orders - RADHA PAPPAS Ua Culture If Indicated (03/26/22 18:36) Urine Bedside (03/26/22 18:36) Urine Culture (03/26/22 18:38) Hcg,Qualitative Serum (03/26/22 19:15) Cbc With Automated Diff (03/26/22 19:15) Comprehensive Metabolic Panel (03/26/22 19:15) Hs C Reactive Protein (03/26/22 19:15) Ed Iv/Invasive Line Start (03/26/22 19:15) Ns Iv 500 Ml (Sodium Chloride 0.9%) (03/26/22 19:15) Ketorolac Injection (Toradol Injection) (03/26/22 19:15) Ct Abd/Pelvis Wo(Kidney Stone) (03/26/22 19:24) Medications Given in ED Current Medications Medications Dose Ordered Sig/Jonny Route Start Time Stop Time Status Last Admin Dose Admin Ketorolac Tromethamine 30 mg ONCE ONCE IVP 03/26/22 19:15 03/26/22 19:17 DC 03/26/22 19:41 30 MG Sodium Chloride 500 ml @ 0 mls/hr Q0M ONCE IV 03/26/22 19:15 03/26/22 19:17 DC 03/26/22 19:40 0 MLS/HR Vital Signs/I&O 03/26/22 18:19 Temp 36.0 Pulse 80 Resp 16 B/P (MAP) 135/80 (98) Pulse Ox 94 O2 Delivery Room Air Blood Pressure Mean: 98 Progress Progress Note #1: Time: 19:26 Progress Note Bedside ultrasound failed to reveal a visible gestation. She has some red blood cells and white blood cells in her urine but denies any dysuria. She has tenderness over her left flank/CVA on percussion. We will get a CT without IV contrast looking for a kidney stone or other pathology such as infection. We will check some basic labs and give her some Toradol for her discomfort. Progress Note #2: Time: 21:44 Progress Note The patient still is not having any nausea. Her pain is gone. Going to give her a gram of Rocephin for her presumed urinary tract infection. Refer her onto gynecology for her lack of menses for the past 6 months. 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 If they become more frequent then she should follow-up with urology Diagnostic Imaging Diagonstic Imaging: CT Plain Films/CT/US/NM/MRI: abdomen, pelvis Comments [facility]. [place], [place] NAME: ELYSSA ACKERMAN [facility] REC#: [id number] PT STATUS: REG ER : 1990 PHYSICIAN: RADHA PAPPAS MD ADMIT DATE: 03/26/22/ER Signed Date of Exam:03/26/22 CT ABD/PELVIS WO(KIDNEY STONE) PROCEDURE: CT urinary tract, rule out kidney stone. TECHNIQUE: Multiple contiguous axial images were obtained through the abdomen and pelvis without the use of intravenous contrast. Auto Exposure Controls were utilized during the CT exam to meet ALARA standards for radiation dose reduction. INDICATION: Abdominal pain since October. Recent weight loss. EXAMINATION:: CT abdomen and pelvis without contrast 03/26/2022. COMPARISON: 09/12/2020 FINDINGS: The lung bases appear clear. There is marked diffuse fatty infiltration throughout the liver with hyperdensity adjacent to the gallbladder likely focal fatty sparing. The gallbladder and spleen grossly unremarkable on this noncontrast examination. Pancreas unremarkable. Adrenal glands normal. There is no nephrolithiasis or hydronephrosis on either side. 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 No ureteral stones appreciated. There is no ureteral stone on the left. There is diverticular disease without evidence for acute diverticulitis. The appendix is normal. There is a nonobstructive bowel gas pattern. There is no ascites. No free air. There is a small fat-containing umbilical hernia. There is no acute osseous abnormality. IMPRESSION: 1. No nephrolithiasis or hydronephrosis with no ureteral stones appreciated. 2. Hepatic steatosis. 3. Diverticular disease without evidence for acute diverticulitis. Appendix normal. Dictated by: Dictated on workstation # [id number] Dict: 03/26/222055 Trans: 03/26/222110 [facility] [id number] Interpreted by: JOE FLORIAN MD Electronically signed by: JOE FLORIAN MD 03/26/222110 Reviewed: Reviewed by Me Departure Impression Primary Impression: UTI (urinary tract infection) Qualified Codes: N30.01 - Acute cystitis with hematuria Additional Impression: Amenorrhea Disposition: HOME, SELF-CARE Condition: Stable Departure-Patient Inst. Decision time for Depature: 21:45 Referrals: [facility] (PCP) Primary Care Physician SUSY ROCHA APRN (Family) Primary Care Physician RENEA OLIVEIRA MD, ELIAS A MD Patient Instructions: Urinary Tract Infection, Adult (DC) Add. Discharge Instructions: Drink lots of fluids to help flush your kidneys out. Cephalexin 500 mg twice a day for 1 week. Return to the ER for significantly worsening symptoms, intractable vomiting or other concerning. Tylenol 1000 mg every 8 hours as needed for pain. Ibuprofen 800 mg every 8 hours as needed for pain. If you continue to have frequent urinary tract infections then you should follow-up with a urologist such as Dr. Banegas. For your loss of periods you should follow-up with Dr. Oliveira or the BR[employer] H[employer]DER INSPECTOR of your choice to help work this up. All discharge instructions reviewed with patient and/or family. Voiced understanding. Scripts Cephalexin (Cephalexin) 500 Mg Tablet 500 MG PO BID for 7 Days, #14 TAB 0 Refills Prov: RADHA PAPPAS 03/26/22 Copy Copies To 1: RENEA OLIVEIRA MD; MAURICE BANEGAS MD, TITUS J Mar 26, 2022 19:18
[2022-03-26 19:46] LABS: BASOPHILS % (AUTO) 0 % (0-10); EOSINOPHILS # (AUTO) 0.1 10^3/uL (0.0-0.3); EOSINOPHILS % (AUTO) 1 % (0-10); HEMATOCRIT 39 % (35-52); HEMOGLOBIN 12.2 g/dL (11.5-16.0); LYMPHOCYTES # (AUTO) 2.7 10^3/uL (1.0-4.0); LYMPHOCYTES % (AUTO) 27 % (12-44); MEAN CORPUSCULAR HEMOGLOBIN 25 pg (25-34); MEAN CORPUSCULAR HGB CONC 32 g/dL (32-36); MEAN CORPUSCULAR VOLUME 79 fL (80-99); MEAN PLATELET VOLUME 10.3 fL (9.0-12.2); MONOCYTES # (AUTO) 0.6 10^3/uL (0.0-1.0); MONOCYTES % (AUTO) 6 % (0-12); NEUTROPHILS # (AUTO) 6.5 10^3/uL (1.8-7.8); NEUTROPHILS % (AUTO) 66 % (42-75); PLATELET COUNT 311 10^3/uL (130-400); WHITE BLOOD COUNT 9.8 10^3/uL (4.3-11.0)
[2022-03-26 20:07] LABS: BILIRUBIN,TOTAL 0.3 MG/DL (0.1-1.0); CALCIUM 9.2 MG/DL (8.5-10.1); CREATININE SERUM 0.64 MG/DL (0.60-1.30); POTASSIUM 3.7 MMOL/L (3.6-5.0); TOTAL PROTEIN 8.4 GM/DL (6.4-8.2)
--- NOTE | 2022-03-26 21:09 | Diagnostic Imaging Report ---
PROCEDURE: CT urinary tract, rule out kidney stone. TECHNIQUE: Multiple contiguous axial images were obtained through the abdomen and pelvis without the use of intravenous contrast. Auto Exposure Controls were utilized during the CT exam to meet ALARA standards for radiation dose reduction. INDICATION: Abdominal pain since October. Recent weight loss. EXAMINATION:: CT abdomen and pelvis without contrast 03/26/2022. COMPARISON: 09/12/2020 FINDINGS: The lung bases appear clear. There is marked diffuse fatty infiltration throughout the liver with hyperdensity adjacent to the gallbladder likely focal fatty sparing. The gallbladder and spleen grossly unremarkable on this noncontrast examination. Pancreas unremarkable. Adrenal glands normal. There is no nephrolithiasis or hydronephrosis on either side. 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 No ureteral stones appreciated. There is no ureteral stone on the left. There is diverticular disease without evidence for acute diverticulitis. The appendix is normal. There is a nonobstructive bowel gas pattern. There is no ascites. No free air. There is a small fat-containing umbilical hernia. There is no acute osseous abnormality. IMPRESSION: 1. No nephrolithiasis or hydronephrosis with no ureteral stones appreciated. 2. Hepatic steatosis. 3. Diverticular disease without evidence for acute diverticulitis. Appendix normal. Dictated by: Dictated on workstation # [id number]
[2022-03-26] MEDS ORDERED: CEPH500T PO (21:48)
[2022-03-26 22:00] VITALS: BP 149/92
[2022-03-26] MEDS ORDERED: cefTRIAXone 1 GM PRE-MIX 50 ML IV ONE (22:00)
== END 2022-03-26 22:00 | disposition home or self-care (01) ==
LOC: EDUNIT# 18:03 → ER 18:11
DX: N39.0 Urinary tract infection, site not specified (principal); N91.2 Amenorrhea, unspecified; Z32.02 Encounter for pregnancy test, result negative
CPT/HCPCS: 36415; 74176; 80053; 81000; 84703; 85025; 86141; 87077; 87088